=== PATIENT | male | born 1975 | race African-American/Black ===

== ENCOUNTER 2018-04-21 18:34 | Emergency (ER) | payer BC, OTHER ==
[2018-04-21 18:37] VITALS: TEMP 98.4; BMI 34.9
[2018-04-21] MEDS ORDERED: SODIUM CHLORIDE 0.9% 1000 ML INFUS.BAG IV ONE (18:49)
[2018-04-21 18:58] LABS: BASO % 0.2 % (0-2.0); EOS % 0.1 % (0-4.5); HEMATOCRIT 46.8 % (35.4-49); HEMOGLOBIN 15.9 GM/dL (11.7-16.9); LYMPH % 7.6 % (8-40); MCH 29.7 pg (25.7-33.7); MEAN CELL VOLUME 87.4 fl (80-96); MEAN PLT VOLUME 9.8 fl (7.5-11.1); MONO % 10.3 % (3.8-10.2); NEUT % 81.8 % (42.8-82.8); PLATELET COUNT 278 K/MM3 (134-434); RBC 5.35 M/mm3 (4.00-5.60); RDW 13.8 % (11.9-15.9); WHITE BLOOD COUNT 8.2 K/mm3 (4.0-10.0)
[2018-04-21] MEDS ORDERED: ONDANSETRON 4 MG/2 ML VIAL IVPUSH ONE (19:12)
--- NOTE | 2018-04-21 19:12 | PDOC ---
Attending Attestation - Resident Resident Name: KellyLamin - ED Attending Attestation I have performed the following: I have examined & evaluated the patient, The case was reviewed & discussed with the resident, I agree w/resident's findings & plan, Exceptions are as noted - Medical Decision Making 04/21/18 20:18 43 years old with nausea vomiting diarrhea epigastric discomfort on exam no lower abdominal tenderness palpation at this time We'll treat with labs fluid Zofran observing reassessed. <Nura Quinones - Last Filed: 04/21/18 20:17> - HPI HPI: 04/21/18 21:03 The patient is a 43 year old with no significant past medical history who presents to the ED for evaluation of nausea, vomiting, diarrhea, and generalized abdominal discomfort for about 3 days. He denies blood in his emesis. He denies blood in his watery stools. The patient denies chest pain, shortness of breath, headache and dizziness. The patient denies fever, chills, and constipation. The patient denies dysuria, frequency, urgency and hematuria. - Physicial Exam PE: 04/21/18 21:06 ROS: A complete review of 10 out of 10 review of systems is taken and is negative apart from what is previously mentioned below and in the HPI. Adult Physical Exam Vitals: Triage vital signs reviewed General Appearance: No acute distress, well nourished, well developed Head: Atraumatic Eyes: Pupils equal reactive round, extraocular movement intact Neck: Supple; No nuchal rigidity Chest Wall: Nontender Cardiac: Regular rate and rhythm, no murmurs, no rubs, no gallops Lungs: Clear to auscultation bilateral, good air movement bilaterally Abdomen: Soft, nondistended, normal bowel sounds, nontender to palpation Extremities: Full range of motion to all extremities, no cyanosis, clubbing, or edema Skin: Warm and dry, no rashes or lesions, no rash, no petechiae Neuro: AOX3; Cranial Nerves 2-12 grossly intact, Strength intact to all extremities, Sensation intact to all extremities, gait normal - Medical Decision Making 04/21/18 21:06 Documentation prepared by Lakesha Quinonez, acting as medical health researcher for Nura Quinones MD, <Lakesha Quinonez - Last Filed: 04/21/18 21:06>
[2018-04-21 19:20] LABS: ALBUMIN 3.9 g/dl (3.4-5.0); ALK PHOS 72 U/L (45-117); ANION GAP 12 MMOL/L (8-16); BILIRUBIN,TOTAL 0.3 mg/dL (0.2-1.0); BLOOD UREA NITROGEN 10 mg/dL (7-18); CALCIUM 9.2 mg/dL (8.5-10.1); CHLORIDE 102 mmol/L (98-107); CO2 25 mmol/L (21-32); CREATININE 1.1 mg/dL (0.7-1.3); GLUCOSE,RANDOM 132 mg/dL (74-106); LIPASE 67 U/L (73-393); SGPT/ALT 27 U/L (12-78); SODIUM 139 mmol/L (136-145)
[2018-04-21 19:38] LABS: POTASSIUM 3.9 mmol/L (3.5-5.1); SGOT/AST 22 U/L (15-37)
--- NOTE | 2018-04-21 19:45 | PDOC ---
History of Present Illness - General Chief Complaint: Nausea/Vomiting Stated Complaint: VOMITING/DIARRHEA Time Seen by Provider: 04/21/18 18:54 History Source: Patient Exam Limitations: No Limitations - History of Present Illness Initial Comments: 43 y/o male presenting to [facility] ER via private auto complaining of nausea, vomiting, diarrhea, and generalized abdominal discomfort since afternoon. Emesis described as non-bloody non-bilious. Stool described as non- bloody and watery in consistency. Symptoms began after eating lunch alone at a restaurant; worsened on Monday with frequent vomiting and diarrhea. Took 2x Advil yesterday without relief. No sick contacts. Denies chest pain, SOB, palpitations, symptoms, or history of abdominal surgeries. Sought emergency evaluation at urging of concerned ; not present at time of interview. Past History - Past Medical History Allergies/Adverse Reactions: Allergies Allergy/AdvReac Type Severity Reaction Status Date / Time No Known Allergies Allergy Verified 04/21/18 18:35 Home Medications: Ambulatory Orders Cyclobenzaprine HCl [Flexeril] 5 mg PO TID PRN #20 tablet 02/05/15 Ondansetron [Zofran -] 4 mg PO Q8H #10 tablet 04/21/18 COPD: No Comment:: Pt denies past medical history. - Suicide/Smoking/Psychosocial Hx Smoking Status: No Smoking History: Never smoked Have you smoked in the past 12 months: No Number of Cigarettes Smoked Daily: 0 Hx Alcohol Use: No Drug/Substance Use Hx: No Substance Use Type: None Review of Systems - Review of Systems Able to Perform ROS?: Yes Is the patient limited Sinhala proficient: No Constitutional: Yes: Diaphoresis (while vomiting), Loss of Appetite, Malaise. No: Chills, Fever HEENTM: No: Throat Pain, Difficulty Swallowing Respiratory: No: Cough, Shortness of Breath Cardiac (ROS): No: Chest Pain, Lightheadedness, Palpitations, Syncope ABD/GI: Yes: See HPI, Diarrhea, Nausea, Poor Fluid Intake, Vomiting, Abdominal cramping. No: Blood Streaked Bowels, Constipated, Rectal Bleeding, Indigestion , Tarry Stools : No: Burning, Dysuria, Discharge, Frequency, Flank Pain, Hematuria, Testicular Swelling, Testicular Pain Musculoskeletal: No: Muscle Weakness Integumentary: No: Rash Neurological: No: Dizziness Hematologic/Lymphatic: No: Easy Bleeding, Easy Bruising *Physical Exam - Vital Signs Last Vital Signs Temp Pulse Resp BP Pulse Ox 98.4 F 101 H 16 158/112 97 04/21/18 18:35 04/21/18 18:35 04/21/18 18:35 04/21/18 18:35 04/21/18 18:35 - Physical Exam Comments: Constitutional: Well-developed, well-nourished male in no acute life threat. Non -toxic appearing. Found semi-fowlers in hospital bed. Alert and oriented x4. Answered all questions appropriately and completely. Speech was non-labored, non -pressured. HEENT: Normocephalic. No obvious external signs of trauma. Sclerae white. Conjunctiva dry and not injected. Oral mucosa dry and not injected. Hearing grossly normal. No nasal discharge. Neck is supple. Cardiovascular: Regular rate and regular rhythm. No murmur, rubs, clicks, or gallops. Peripheral pulses: Radial pulses full. Respiratory: Equal chest rise and fall. Clear to auscultation bilaterally. No stridor, no wheezing, no rhonchi. Gastrointestinal: abdomen is non peritoneal with subjective tenderness in epigastrium without guarding or rebound. Abs is otherwise soft and nondistended. No hepatosplenomegaly. No pulsatile masses. No overlying skin lesions or obvious signs of trauma. Neuro: Alert and oriented. Moving all four extremities spontaneously. Skin: Warm, dry, and intact. No bruising, rashes, or other lesions. Psych: Affect: appropriate. Mood: normal. ED Treatment Course - LABORATORY CBC & Chemistry Diagram: 04/21/18 18:50 04/21/18 18:50 - ADDITIONAL ORDERS Additional order review: Laboratory Results 04/21/18 04/21/18 18:50 18:50 WBC 8.2 RBC 5.35 Hgb 15.9 Hct 46.8 MCV 87.4 MCH 29.7 MCHC 34.0 RDW 13.8 Plt Count 278 D MPV 9.8 Absolute Neuts (auto) 6.7 Neutrophils % 81.8 D Lymphocytes % 7.6 L D Monocytes % 10.3 H Eosinophils % 0.1 D Basophils % 0.2 Nucleated RBC % 0 Sodium 139 Potassium 3.9 Chloride 102 Carbon Dioxide 25 Anion Gap 12 BUN 10 Creatinine 1.1 Creat Clearance w eGFR > 60 Random Glucose 132 H Calcium 9.2 Total Bilirubin 0.3 AST 22 ALT 27 D Alkaline Phosphatase 72 Total Protein 8.0 Albumin 3.9 Lipase 67 L 04/21/18 18:50 RBC 5.35 MCV 87.4 MCHC 34.0 RDW 13.8 MPV 9.8 Neutrophils % 81.8 D Lymphocytes % 7.6 L D Monocytes % 10.3 H Eosinophils % 0.1 D Basophils % 0.2 - Medications Given in the ED: ED Medications Discontinued Medications Generic Name Dose Route Start Last Admin Trade Name Quirinoq PRN Reason Stop Dose Admin Ondansetron HCl 4 mg 04/21/18 19:12 04/21/18 19:20 Zofran Injection IVPUSH 04/21/18 19:13 4 mg ONCE ONE Administration Sodium Chloride 1,000 ml 04/21/18 18:49 04/21/18 19:19 Normal Saline - IV 04/21/18 18:50 1,000 ml ONCE ONE Administration Medical Decision Making - Medical Decision Making *Reviewed nursing notes and prior visit documentation. 43 y/o previously healthy male with virgin abdomen complaining of nausea, vomiting, and diarrhea for past 2 days. Afebrile. Vitals are unremarkable for tachycardia or hypotension. Suspect gastroenteritis. Low suspicion for pancreatitis, PUD, hepatitis, or cholecystitis. CBC, CMP, lipase, and NS IVFB ordered by RME. Ordered zofran for symptom relief. CBC, CMP, and Lipase are all unremarkable for derangement. Pt continues to complain of nausea but has not received Zofran yet. F/ued with RN who assured it will be administered shortly. Also ordered second IVFB. 20:50 Pt now complaining of headache. Administered PO Tylenol. Brought water pitcher to bedside. Encouraging pt to drink for PO challenge. Pt reports his nausea has improved after receiving Zofran. Repeat abdominal exam revealed subjective epigastric tenderness without rebound or guarding. No peritoneal signs. Discussed laboratory results with pt. Answered all questions. Pt expressed verbal understanding and agreement with plan to discharge home with outpatient follow up as needed. Prescribed PO Zofran. Pt discharged from department without further incident. *DC/Admit/Observation/Transfer Diagnosis at time of Disposition: Vomiting and diarrhea - Discharge Dispostion Disposition: HOME Condition at time of disposition: Good Decision to Admit order: No - Prescriptions Prescriptions: Ondansetron [Zofran -] 4 mg PO Q8H #10 tablet - Referrals Referrals: Trevor Daniels MD [Primary Care Provider] - - Patient Instructions Printed Discharge Instructions: DI for Viral Gastroenteritis -- Adult Additional Instructions: Please continue to drink fluids (water, Gatorade, etc) to stay hydrated. You can try and eat a small bland meal (crackers, etc) after you have stopped vomiting for 12 hours. I have sent a prescription for Zofran to the [address] [place] [address] at [address] [place] [address]. Their phone number is . Take it once every 8 hours as needed for nausea. Return to the emergency room if your vomiting becomes much worse and you are no longer able to keep fluids down, if you begin to feel dehydrated, if you develop a fever, pass out, become disoriented, begin vomiting blood, have bloody diarrhea, or you feel like you need additional emergency care. You can also see your primary care doctor if your symptoms do not improve. Print Language: HEBREW - Post Discharge Activity
[2018-04-21] MEDS ORDERED: SODIUM CHLORIDE 0.9% 500 ML INFUS.BAG IV ONE (19:59)
[2018-04-21] MEDS ORDERED: ONDANSETRON 4 MG/2 ML VIAL ONE (20:17)
[2018-04-21] MEDS ORDERED: ACETAMINOPHEN 500 MG TABLET (FP) PO ONE (20:25)
[2018-04-21] MEDS ORDERED: ACETAMINOPHEN 325 MG TABLET (FP) ONE (20:48)
[2018-04-21 21:19] VITALS: BP 147/76; PULSE 74
== END 2018-04-21 21:38 | disposition home or self-care (01) ==
LOC: JER 18:34
PROC: 3E033GC Introduction of Other Therapeutic Substance into Peripheral Vein, Percutaneous Approach (ICD-10-PCS; principal; 2018-04-21)
DX: K52.9 Noninfective gastroenteritis and colitis, unspecified (principal)
CPT/HCPCS: 36415; 80053; 83690; 85025; 99283-25; J7030

== ENCOUNTER 2018-04-22 19:55 | Emergency (ER) | payer BC ==
[2018-04-22 20:02] VITALS: BMI 29.0
--- NOTE | 2018-04-22 20:42 | PDOC ---
Attending Attestation - Resident Resident Name: Lamin Kelly - ED Attending Attestation I have performed the following: I have examined & evaluated the patient, The case was reviewed & discussed with the resident, I agree w/resident's findings & plan - HPI HPI: 04/22/18 20:49 Pt ate a bad sheeba cheesesteak on . Sonce that time unable to eat with worsening diffuse abd pain. He was here yesterday and labs were normal. He was hydrated with 2L NSS and now again low grade temp and worsening. - Physicial Exam PE: 04/22/18 21:52 Pt has rebound diffusely in the abd; guarding diffusely; worse pain in at the LLQ. - Medical Decision Making 04/22/18 20:50 We will get an Oral contrast CT abd pelvis and treat symptomatically. 04/22/18 21:51 Labs are completely normal. 04/22/18 22:27 acetone negative; pt is comfortable at this time 04/22/18 22:53 Pt is feeling better; he drank contrast; awaiting CT scan 04/23/18 00:11 Patient Name: KIANA MCCORMICK THIS IS A PRELIMINARY REPORT FROM [facility] DATE OF SERVICE: 2018-04-22 23:49:51 IMAGES: [id number] EXAM: ABDOMEN \T\ PELVIS CT W/O CONTR HISTORY: Left lower quadrant pain COMPARISON: None. FINDINGS: Lung bases are clear other than mild subsegmental dependent atelectasis. The visualized cardiac chambers are normal size and configuration. Normal unenhanced liver, gallbladder, pancreas, spleen, adrenal glands and kidneys. The stomach and small bowel are normal. Diffuse liquid stool without colonic wall thickening which may indicate a diarrheal illness. There is no aortic aneurysm. There is no significant retroperitoneal lymphadenopathy. The appendix is normal. The urinary bladder and prostate gland are normal. No pelvic free fluid is identified. There is no significant pelvic lymphadenopathy. IMPRESSION: Possible diarrheal illness without colonic wall thickening 04/23/18 00:11 UA pending and then pt will go home. Home with imodium 04/23/18 01:52 UA normal; pt went home
[2018-04-22] MEDS ORDERED: SODIUM CHLORIDE 0.9% 500 ML INFUS.BAG IV ONE (20:44)
[2018-04-22] MEDS ORDERED: ACETAMINOPHEN 1000 MG/100 ML VIAL (NON FORMULARY) IVPB ONE (20:44)
[2018-04-22] MEDS ORDERED: FAMOTIDINE 20 MG/50 ML IVPB 20 MG/50 ML MG IVPB ONE ×2 (20:44→21:23)
--- NOTE | 2018-04-22 20:45 | PDOC ---
History of Present Illness - General Chief Complaint: Pain Stated Complaint: NAUSEA/VOMITING Time Seen by Provider: 04/22/18 20:29 History Source: Patient Exam Limitations: No Limitations - History of Present Illness Initial Comments: 43 y/o male presenting to [facility] ER via private auto complaining of abdominal pain , nausea, vomiting, and diarrhea since (19 Apr 2018). Was evaluated, treated, and discharged from this department yesterday by myself and Dr. Quinones. Pt returns this evening with worsening general abdominal pain, most severe in epigastrum, RUQ, and LLQ. Pain is somewhat worsened by inspiration. Was able to fill prescriptions. Zofran provided some relief but occasional nausea/vomiting and diarrhea have persisted. Denies fevers, chills, diaphoresis, bloody/bilious emesis, bloody/melanotic stool, or hematuria. Denies symptoms. Further reports multiple coworkers have been sick with a bad stomach bug and out of work for over a week. Past History - Past Medical History Allergies/Adverse Reactions: Allergies Allergy/AdvReac Type Severity Reaction Status Date / Time No Known Allergies Allergy Verified 04/22/18 20:00 Home Medications: Ambulatory Orders Ondansetron [Zofran -] 4 mg PO Q8H #10 tablet 04/21/18 COPD: No - Suicide/Smoking/Psychosocial Hx Smoking Status: No Smoking History: Never smoked Have you smoked in the past 12 months: No Number of Cigarettes Smoked Daily: 0 Hx Alcohol Use: No Drug/Substance Use Hx: No Substance Use Type: None Review of Systems - Review of Systems Able to Perform ROS?: Yes Is the patient limited Somali proficient: No Constitutional: Yes: Chills, Diaphoresis, Weakness. No: Fever HEENTM: No: Recent change in vision, Throat Pain, Difficulty Swallowing Respiratory: No: Shortness of Breath Cardiac (ROS): Yes: Lightheadedness. No: Chest Pain, Palpitations, Syncope ABD/GI: Yes: See HPI, Diarrhea, Nausea, Poor Appetite, Poor Fluid Intake, Vomiting, Abdominal cramping. No: Abdominal Distended, Difficulty Swallowing, Rectal Bleeding, Tarry Stools : No: Burning, Dysuria, Discharge, Frequency, Hematuria, Incontinence, Pain, Urgency, Testicular Mass, Testicular Swelling, Lesions, Testicular Pain Musculoskeletal: No: Back Pain Integumentary: No: Bruising, Sweating Neurological: Yes: Headache Hematologic/Lymphatic: No: Easy Bleeding, Easy Bruising *Physical Exam - Vital Signs Last Vital Signs Temp Pulse Resp BP Pulse Ox 98.7 F 80 20 147/90 97 04/22/18 20:00 04/22/18 20:00 04/22/18 20:00 04/22/18 20:00 04/22/18 20:00 - Physical Exam Comments: Constitutional: Well-developed, well-nourished male in no acute life threat but obvious discomfort. Found right lateral decubitus position on hospital bed. Alert and oriented x4. Answered all questions appropriately and completely. Speech was non-labored, non-pressured. HEENT: Normocephalic. No obvious external signs of trauma. Hearing grossly normal. No nasal discharge. Neck is supple, trachea is midline. No JVD. Cardiovascular: Regular rate and regular rhythm. No murmur, rubs, clicks, or gallops. Peripheral pulses: Radial pulses full. Respiratory: Equal chest rise and fall. Clear to auscultation bilaterally. No stridor, no wheezing, no rhonchi. Gastrointestinal: abdomen is not peritoneal but tender in epigastrium, RUQ, and LLQ with grimace and guarding. Abd is otherwise soft and nondistended. No pulsatile masses. No overlying skin lesions or obvious signs of trauma. Neuro: Alert and oriented. Moving all four extremities spontaneously. Skin: Warm, dry, and intact. No bruising, rashes, or other lesions. : No CVA tenderness. Psych: Affect: appropriate. Mood: normal ED Treatment Course - LABORATORY CBC & Chemistry Diagram: 04/22/18 21:15 04/22/18 21:15 - RADIOLOGY Radiology Studies Ordered: Category Date Time Status GALLBLADDER US [US] Stat Ultrasound 04/22/18 20:42 Ordered Radiograph Interpretation: CT of Abdomen and Pelvis with Oral Contrast: Prasanth Melchor MD wrote on Apr 23, 2018 at 12:07 AM: Referring Physician: BISHOP HARRELL Patient Name: KIANA MCCORMICK THIS IS A PRELIMINARY REPORT FROM [facility] DATE OF SERVICE: 2018-04-22 23:49:51 IMAGES: [id number] EXAM: ABDOMEN \T\ PELVIS CT W/O CONTR HISTORY: Left lower quadrant pain COMPARISON: None. FINDINGS: Lung bases are clear other than mild subsegmental dependent atelectasis. The visualized cardiac chambers are normal size and configuration. Normal unenhanced liver, gallbladder, pancreas, spleen, adrenal glands and kidneys. The stomach and small bowel are normal. Diffuse liquid stool without colonic wall thickening which may indicate a diarrheal illness. There is no aortic aneurysm. There is no significant retroperitoneal lymphadenopathy. IMPRESSION: Possible diarrheal illness without colonic wall thickening Medical Decision Making - Medical Decision Making *Reviewed nursing notes and prior visit documentation. 43 y/o male returning to ER (seen yesterday by myself) with continued abdominal pain, nausea, vomiting, and diarrhea. Afebrile. Vitals unremarkable for hypotension or tachycardia. Continue to suspect viral gastroenteritis. Continue to have low suspicion for ACS, hepatitis, cholecystitis, cholelithiasis, pancreatitis, appendicitis, or diverticulitis. Will investigate further given this is a repeat visit. Ordered CBC, CMP, Lipase, Troponin, EKG, serum acetone, and Abd CT with PO contrast. Acetaminophen, Famotidine, Morphine, Ondansetron, and NS IVFB ordered for symptom relief. 00:13 CT of Abdomen and Pelvis with PO contrast remarkable for diffuse liquid stool without colonic wall thickening suggestive for diarrheal illness. Normal liver, gallbladder, pancreas, spleen, adrenal glands, and kidneys. No aortic aneurysm. 00:28 Repeat abdominal exam unchanged from prior; no peritoneal signs. Discussed normal imaging and laboratory results with pt. Answered all questions. Provided return precautions. Pt expressed verbal understanding and agreement with plan to discharge home with outpatient follow up as needed. UA and urine culture pending at time of discharge. Continue to have low suspicion for UTI or nephrolithiasis. Hospital staff to contact pt with results if abnormal. *DC/Admit/Observation/Transfer Diagnosis at time of Disposition: Abdominal pain, vomiting, and diarrhea - Discharge Dispostion Disposition: HOME Condition at time of disposition: Good Decision to Admit order: No - Referrals Referrals: Trevor Daniels MD [Primary Care Provider] - - Patient Instructions Printed Discharge Instructions: DI for Viral Gastroenteritis -- Adult Additional Instructions: Your abdominal CT scan and blood work were both normal today and unchanged from yesterday. Continue to follow the instructions provided to you yesterday. Please continue to drink fluids (water, Gatorade, etc) to stay hydrated. You can try and eat a small bland meal (crackers, etc) after you have stopped vomiting for 12 hours. Continue to take the Zofran every 8 hours as needed for nausea/vomiting. You can also take over the counter Pepto Bismol. Follow the package instructions. Return to the emergency room if your vomiting becomes much worse and you are no longer able to keep fluids down, if you begin to feel dehydrated, if you develop a fever, pass out, become disoriented, begin vomiting blood, have bloody diarrhea, or you feel like you need additional emergency care. You can also see your primary care doctor if your symptoms do not improve. Print Language: UZBEK - Post Discharge Activity
[2018-04-22] MEDS ORDERED: morphine CARPU-JECT 2 MG/1 ML DISP.SYRIN IVPUSH ONE (20:50)
[2018-04-22] MEDS ORDERED: ONDANSETRON 4 MG/2 ML VIAL IVPB ONE (20:51)
[2018-04-22] MEDS ORDERED: ONDANSETRON 4 MG/2 ML VIAL IVPUSH ONE (20:53)
[2018-04-22] MEDS ORDERED: MORPHINE SULFATE 2 MG/ML VIAL ONE (21:23)
[2018-04-22] MEDS ORDERED: ACETAMINOPHEN INJECTION 100 ML IVPB ONE (21:23)
[2018-04-22] MEDS ORDERED: ONDANSETRON 4 MG/2 ML VIAL ONE (21:23)
[2018-04-22 21:25] LABS: BASO % 0.2 % (0-2.0); EOS % 0.5 % (0-4.5); HEMATOCRIT 43.8 % (35.4-49); HEMOGLOBIN 14.8 GM/dL (11.7-16.9); LYMPH % 16.4 % (8-40); MCH 29.6 pg (25.7-33.7); MCHC 33.9 g/dl (32.0-35.9); MEAN CELL VOLUME 87.4 fl (80-96); MEAN PLT VOLUME 9.7 fl (7.5-11.1); MONO % 15.2 % (3.8-10.2); NEUT % 67.7 % (42.8-82.8); PLATELET COUNT 232 K/MM3 (134-434); RBC 5.01 M/mm3 (4.00-5.60); RDW 13.6 % (11.9-15.9); WHITE BLOOD COUNT 6.9 K/mm3 (4.0-10.0)
[2018-04-22 21:47] LABS: ALBUMIN 3.5 g/dl (3.4-5.0); ANION GAP 10 MMOL/L (8-16); BILIRUBIN,TOTAL 0.4 mg/dL (0.2-1.0); BLOOD UREA NITROGEN 9 mg/dL (7-18); CALCIUM 8.5 mg/dL (8.5-10.1); CHLORIDE 105 mmol/L (98-107); CO2 24 mmol/L (21-32); CREATININE 0.9 mg/dL (0.7-1.3); GLUCOSE,RANDOM 105 mg/dL (74-106); LIPASE 99 U/L (73-393); POTASSIUM 3.7 mmol/L (3.5-5.1); SGOT/AST 18 U/L (15-37); SGPT/ALT 25 U/L (12-78); SODIUM 139 mmol/L (136-145); TOT PROT 7.1 g/dl (6.4-8.2)
[2018-04-22 21:48] LABS: ALK PHOS 64 U/L (45-117)
[2018-04-23] MEDS ORDERED: LOPERAMIDE HCL 2 MG CAPSULE PO ONE (00:12)
[2018-04-23 01:11] VITALS: BP 155/93; PULSE 63; TEMP 97.3
[2018-04-23 01:17] LABS: URINE APPEARANCE CLEAR; URINE BILIRUBIN NEGATIVE (<2.0 mg/dL); URINE COLOR YELLOW; URINE GLUCOSE (UA) NEGATIVE (NEGATIVE); URINE KETONE NEGATIVE (NEGATIVE); URINE LEUK ESTERASE NEGATIVE (NEGATIVE); URINE NITRITE NEGATIVE (NEGATIVE); URINE PROTEIN NEGATIVE (NEGATIVE); URINE UROBILINOGEN NEGATIVE mg/dL (0.2-1.0)
--- NOTE | 2018-04-23 10:19 | EKG ---
Test Reason : Blood Pressure : / mmHG Vent. Rate : 066 BPM Atrial Rate : 066 BPM P-R Int : 148 ms QRS Dur : 086 ms QT Int : 372 ms P-R-T Axes : 046 002 018 degrees QTc Int : 389 ms NORMAL SINUS RHYTHM NORMAL ECG WHEN COMPARED WITH ECG OF 10-AUG-2012 21:28, ST NO LONGER ELEVATED IN ANTERIOR LEADS Confirmed by CHARLOTTE FERNANDES MD ([id number]) on 04/23/2018 10:19:12 AM Referred By: Confirmed By:CHARLOTTE FERNANDES MD
== END 2018-04-23 00:48 | disposition home or self-care (01) ==
LOC: JER 19:55
PROC: 3E033GC Introduction of Other Therapeutic Substance into Peripheral Vein, Percutaneous Approach (ICD-10-PCS; principal; 2018-04-22)
PROC: 3E033GC Introduction of Other Therapeutic Substance into Peripheral Vein, Percutaneous Approach (ICD-10-PCS; 2018-04-22)
PROC: 3E033GC Introduction of Other Therapeutic Substance into Peripheral Vein, Percutaneous Approach (ICD-10-PCS; 2018-04-22)
PROC: 3E033GC Introduction of Other Therapeutic Substance into Peripheral Vein, Percutaneous Approach (ICD-10-PCS; 2018-04-22)
PROC: 3E033NZ Introduction of Analgesics, Hypnotics, Sedatives into Peripheral Vein, Percutaneous Approach (ICD-10-PCS; 2018-04-22)
PROC: 3E033NZ Introduction of Analgesics, Hypnotics, Sedatives into Peripheral Vein, Percutaneous Approach (ICD-10-PCS; 2018-04-22)
DX: A08.4 Viral intestinal infection, unspecified (principal); B97.89 Other viral agents as the cause of diseases classified elsewhere
CPT/HCPCS: 36415; 74176-TC; 80053; 81003; 82009; 83690; 84484; 85025; 87086; 93005; 93010; 99284-25; J0131